=== PATIENT | male | born 1960 | race Caucasian/White ===

== ENCOUNTER 2023-04-27 00:03 | Emergency (ER) | payer OTHER, SELFPAY ==
[2023-04-27] VITALS (11 sets, daily range): BP systolic 133–158; BP diastolic 84–86; PULSE 98–117; RESP 17–32; TEMP 36.4; O2SAT 75–100
--- NOTE | ~2023-04-27 | XR_ITS ---
Portable chest x-ray Comparison: None Clinical History: Dyspnea Findings: Probable mild central congestive change. No consolidation or pleural effusion. Cardiomedi astinal silhouette is unremarkable. Bones and soft tissues are unremarkable. Impression: Probable mild central congestive changes. Reviewed, dictated and finalized at [facility]. PLASTICS Impression: Probable mild central congestive changes.
[2023-04-27 00:23] LABS: Basophils Absolute Auto 0.02 K/mm3 (0.00-0.10); Basophils Percent Auto 0.2 % (0.0-1.0); Eosinophils Absolute Auto 0.02 K/mm3 (0.02-0.50); Eosinophils Percent Auto 0.2 % (1.0-6.0); Hematocrit 38.3 % (40.0-54.0); Hemoglobin 12.1 g/dL (14.0-18.0); Immature Granulocyte Absolute 0.05 K/mm3 (0.00-0.00); Immature Granulocyte Percent A 0.4 % (0.0-0.0); Lymphocytes Percent Auto 9.9 % (18.0-42.0); Mean Corpuscular HGB Conc 31.6 g/dL (32.0-36.0); Mean Corpuscular Hemoglobin 30.2 pg (27.0-31.0); Mean Corpuscular Volume 95.5 fL (78.0-102.0); Mean Platelet Volume 9.7 fl (8.7-11.0); Monocytes Absolute Auto 1.65 K/mm3 (0.10-0.90); Monocytes Percent Auto 12.6 % (2.0-11.0); Neutrophils Absolute Auto 10.1 K/mm3 (1.7-7.2); Neutrophils Percent Auto 76.7 % (50.0-70.0); Platelet Count Result 418 K/mm3 (150-420); Red Blood Count 4.01 M/mm3 (4.70-6.10); Red Cell Distribution Width 13.2 % (11.6-14.4); White Blood Count 13.1 K/mm3 (4.8-10.8)
--- NOTE | 2023-04-27 00:29 | ED.GENADULT ---
HPI - General Adult General Chief complaint: Shortness of Breath/Dyspnea Stated complaint: shortness of breath Time Seen by Provider: 04/27/23 00:17 History of Present Illness HPI narrative: 62yo man with extremely heavy smoking history, discharged yesterday following two week stay for COPD exacerbation requiring mechanical ventilation, returned home yesterday with oxygen concentrator, presents in severe respiratory distress when his oxygen concentrator broke this evening and he tried to go without. SpO2 70% on room air, rapidly corrected with NRB. No fevers, chills. +wheezing and dry cough. No chest pain. Related Data Allergies Allergy/AdvReac Type Severity Reaction Status Date / Time No Known Allergies Allergy Verified 04/27/23 02:11 Review of Systems Review of Systems: All systems reviewed & are unremarkable except as noted in HPI and below Constitutional: Constitutional: Denies chills and Denies fever(s) ENT: Denies dysphagia Cardiovascular: Cardiovascular: Denies chest pain Respiratory: Respiratory: Reports chest congestion, Reports cough, Reports dyspnea and Reports wheezing Gastrointestinal: Gastrointestinal: Denies abdominal pain Musculoskeletal: Musculoskeletal: Denies back pain Exam Const: General: healthy appearing and no acute distress Nutritional Appearance: well nourished HENMT: Head: normal to inspection Eyes: Conjunctivae: conjunctivae normal Resp: Effort & Inspection: labored, no retractions and uses accessory muscles Auscultation: clear to auscultation bilaterally Other: prolonged expiratory phase Cardio: Rate: regular rate Rhythm: regular rhythm Heart sounds: no murmurs GI: Inspection: non-distended GI Palp: Yes Soft to palpation Skin: General skin exam: normal color, no jaundice and no pallor Extrem: General: no clubbing, cyanosis or edema Course Vital Signs Vital signs: Vital Signs Temperature 36.4 C 04/27/23 00:12 Pulse Rate 113 H 04/27/23 00:12 Respiratory Rate 17 04/27/23 00:12 Blood Pressure 158/86 H 04/27/23 00:12 Pulse Oximetry 75 L 04/27/23 00:12 Oxygen Delivery Room Air 04/27/23 00:12 Temperature 36.4 C 04/27/23 00:12 Pulse Rate 113 H 04/27/23 00:12 Respiratory Rate 17 04/27/23 00:12 Blood Pressure 158/86 H 04/27/23 00:12 Pulse Oximetry 100 04/27/23 00:14 Oxygen Delivery Non-Rebreather Mask 04/27/23 00:14 Oxygen Flow Rate 15 04/27/23 00:14 Procedures Cricothyrotomy Cricothyrotomy Date: 04/27/23 Cricothyrotomy Time: 01:35 Indication: rescue airway Tube Type: endotracheal C-Spine Immobilization Present: No Technique Choice: surgical cricothyrotomy Endotracheal Tube Size: 6 Cuffed Tube: Yes Bilateral Breath Sounds: Yes Complications: bleeding Additional Comments: trachea cannulated with a finger; however, attempts to pass ET tube, a wire, and a bougie were all met with resistance. Bougie was ultimately able to pass and met appropriate bronchial resistance. Tube secured with trach gao and pt bagged with resulting increase in SpO2 from <20% to >80%. Pt remained in asystolic arrest. Intubation Intubation #1: Intubation Date: 04/27/23 Intubation Time: 01:25 Time out performed: Yes sedative: Ketamine (Rocuronium) Mg Given: 100 paralytic: Rocuronium Mg Given: 100 Laryngoscope: Humza Assist Device Used: Bougie Tube Size (cm): 8.0 Method of Intubation: orotracheal Number of Attempts: 3 Tube Secured Location: other (copious thick emesis of shredded beef came up when RSI meds given, numerous yankauer suction catheter tips clogged and emesis could not be cleared. Pt repositioned and laryngoscopy attempted three times total. Unable to clear emesis. unable to pass ETT or bougie. Surgical airway then performed. ) Intubation Complications: unable to intubate and surgical airway needed Medical Decision Making MDM N
--- NOTE | 2023-04-27 00:30 | PC.NURSE ---
Pt is unable to rest comfortably and is restless on bed, even c nonreb mask in place, he keeps attempting to pull off mask and has labored breathing. Pt placed back on mask. Orders for contiuous nebs received.
[2023-04-27] MEDS: dexAMETHasone SOD PHOS INJ 10 MG/ML 1 ML VIAL IV PUSH (00:36)
[2023-04-27] MEDS: SODIUM CHLORIDE 0.9% IV 1,000 ML 999 ML IV CONT (00:37)
[2023-04-27] MEDS: ALBUTEROL SULFATE NEB 2.5 MG/3 ML INH 10 MG INHALATION (00:39)
[2023-04-27 00:43] LABS: Alanine Aminotransferase 18 U/L (16-63); Albumin Level 2.6 g/dL (3.4-5.0); Alkaline Phosphatase 86 U/L (46-116); Anion Gap 6 mmol/L (8-16); Aspartate Amino Transferase 11 U/L (15-37); Bilirubin,Total 0.5 mg/dL (0.00-1.00); Blood Urea Nitrogen 17 mg/dL (7-18); Calcium 8.5 mg/dL (8.5-10.1); Carbon Dioxide 33 mmol/L (21-32); Chloride 101 mmol/L (98-108); Estimated CRCL calculation 96 ml/min; Estimated Glomerular Filt Rate > 60; Glucose 331 mg/dL (70-99); Magnesium 1.5 mg/dL (1.8-2.4); NT Pro B Type Natriuretic Pept 693 pg/mL (0-125); Osmolality Calculated 304 mOsm/kg (285-295); Potassium 4.2 mmol/L (3.5-5.1); Sodium 140 mmol/L (136-145); Total Protein 6.8 g/dL (6.4-8.2)
--- NOTE | 2023-04-27 00:50 | PC.NURSE ---
Pt becoming more anxious, having labored breathing even on continuous nebs, poor air movement in lungs, ERP notified to reevaluate pt.
[2023-04-27] MEDS: LORazepam INJ (*CRX) 2 MG/ML VIAL 0.5 MG IV PUSH (00:52)
--- NOTE | 2023-04-27 00:55 | PC.NURSE ---
Pts mental status declining and breathing becoming more labored, pt is unresponsive to verbal or painful stimuli. Pt moved to Rm 7, monitor showing Stach. SPO2 93% on neb txs.
--- NOTE | 2023-04-27 01:00 | PC.NURSE ---
Call placed to Carolina champion to respond for intubation of pt. No response from RT, call then placed to Jennifer Tello from resp to respond for intubation. Jennifer, answered and will be on her way. Pt being prepared to intubate, he remains unresponsive c abdominal breathing noted and labored resp.
[2023-04-27] MEDS: KETAMINE HCL (*CRX) 500 MG/10 ML VIAL 100 MG IV PUSH (01:25)
--- NOTE | 2023-04-27 01:25 | PC.NURSE ---
Pt being bagged, SPO2 remains at 96% c bagging. Orders received for RSI meds and given as ordered.
--- NOTE | 2023-04-27 01:30 | PC.NURSE ---
Pt having copious amts of brown vomitus c undigested food while ERP attempting intubation, continuous suctioning of vomitus to clear airway for intubation is unsuccessful. BMV ventilation being given to pt until airway can be cleared. Monitor continues to show Stach at this time.
--- NOTE | 2023-04-27 01:35 | PC.NURSE ---
Pt monitor showing sbrady and HR trending down, weak palpable pulse noted. Continuing to suction lrg amt of copious brown vomitus from airway and pt being bagged c BMV.
--- NOTE | 2023-04-27 01:39 | PC.NURSE ---
Pt being prepped for emergency cric per ERP, pt has no pulse, CPR started, see paperwork and strips per protocol.
--- NOTE | 2023-04-27 02:30 | PC.NURSE ---
Calls placed per protocol to international sales manager and [facility] .... see exp. assessment documentation.
--- NOTE | 2023-04-27 04:20 | PC.NURSE ---
Pt to be released to [facility], call placed, pt released from [facility].
--- NOTE | 2023-05-04 12:28 | PC.NURSE ---
final blood culture results x1: no growth after 5 days.
== END 2023-04-27 04:59 | disposition expired ==
PROVIDERS: Emergency Provider Emergency Medicine
DX: I46.9 Cardiac arrest, cause unspecified (principal); J44.9 Chronic obstructive pulmonary disease, unspecified; J98.8 Other specified respiratory disorders; J96.11 Chronic respiratory failure with hypoxia; Z99.81 Dependence on supplemental oxygen
CPT/HCPCS: 31500; 31605; 36415; 71045; 80053; 83735; 83880; 85025; 87040; 92950; 94640; 99291; J0171; J1100; J2060; J7030